=== PATIENT | female | born 1965 | race Caucasian/White ===

== ENCOUNTER 2016-12-03 17:49 | Emergency (ER) | payer BC ==
[2016-12-03] MEDS ORDERED: 0.9 % SODIUM CHLORIDE 1,000 ML BAG IV ONE (18:44)
[2016-12-03] MEDS ORDERED: PANTOPRAZOLE SODIUM IV 40 MG VIAL IVP ONE (18:45)
--- NOTE | 2016-12-03 18:45 | Emergency Department Record ---
History of Present Illness - General Chief complaint: Vomiting blood Stated complaint: VOMITING BLOOD Time Seen by Provider: 12/03/16 18:42 Source: Patient Mode of Arrival: Ambulatory Limitations: No limitations - History of Present Illness Initial comments: 51 yo presents after starting with nausea and vomiting last evening. Her first episode last night and first episode this morning were clear. As the day progressed she had some streaks of blood in the clear mucous like vomit. No blood in the stools. This has occurred on about 3-4 times today. Her nausea started after eating a greasy sausage last night. She did not have any blood the first time she vomited last night or the first time this morning. Nausea and upset stomach are common for her after greasy food. This morning when she tried to eat the symptoms persisted with nausea then vomited. No changes in her stool color. 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 Onset/Timin -: Days(s) Radiation: None Quality: Painless Consistency: Intermittent Improves with: None Worsens with: None Associated Symptoms: Headaches, Nausea, Vomiting Treatments Prior to Arrival: None - Related Data Home Medications Medication Instructions Recorded Confirmed Last Taken Naproxen [Naprosyn] 500 mg PO Q12H 07/29/15 12/03/16 Unknown Previous Rx's Medication Instructions Recorded Ondansetron [Zofran Odt] 4 mg PO Q8H #20 tab.rapdis 12/03/16 Pantoprazole Sodium [Protonix] 20 mg PO DAILY #30 tablet. 12/03/16 Allergies Allergy/AdvReac Type Severity Reaction Status Date / Time hydroxychloroquine sulfate Allergy seeping Verified 12/03/16 18:32 [From Plaquenil] rash Travel Screening - Travel/Exposure Within Last 30 Days Have you traveled within the last 30 days?: No Review of Systems Constitutional: Denies: Chills, Fever, Malaise, Night sweats, Weakness Eyes: Denies: Eye discharge, Eye pain, Photophobia ENT: Denies: Congestion Respiratory: Denies: Cough, Dyspnea, Hemoptysis, Stridor, Wheezes Cardiovascular: Denies: Chest pain, Palpitations Endocrine: Denies: Fatigue Gastrointestinal: Reports: Abdominal pain (mild knot like feeling in the upper stomach), Hematemesis, Nausea, Vomiting. Denies: Constipation, Diarrhea, Hematochezia, Melena Genitourinary: Denies: Dysuria, Hematuria, Urgency Musculoskeletal: Denies: Arthralgia, Back pain, Myalgia, Neck pain Skin: Denies: Change in color, Change in hair/nails, Lesions Neurological: Denies: Confusion, Headache Psychiatric: Denies: Anxiety Hematological/Lymphatic: Denies: Blood Clots, Easy bleeding, Easy bruising, Swollen glands Past Medical History - SOCIAL HISTORY Smoking Status: Never smoker Alcohol Use: None Drug Use: None - RESPIRATORY Hx Respiratory Disorders: No - CARDIOVASCULAR Hx Cardio Disorders: No - NEURO Hx Neuro Disorders: Yes Hx Headaches: Yes - GI Hx GI Disorders: Yes Hx Abdominal Pain: Yes - Hx Genitourinary Disorders: No - ENDOCRINE Hx Endocrine Disorders: No - MUSCULOSKELETAL Hx Musculoskeletal Disorders: No - PSYCH Hx Psych Problems: No - HEMATOLOGY/ONCOLOGY Hx Hematology/Oncology Disorders: No Family Medical History Any Significant Family History?: Yes Hx Cancer: Mother *Cancer Comment: Aunt Hx Diabetes: Mother *Diabetes Comment: Aunt, Uncle Hx Heart Disease: Grandparents Hx HTN: Grandparents Physical Exam - General General Appearance: Alert, Oriented x3, Cooperative, No acute distress Limitations: No limitations - Head Head exam: Atraumatic, Normal inspection - Eye Eye exam: Normal appearance, PERRL. negative: Conjunctival injection - ENT ENT exam: Normal exam, Mucous membranes moist Ear exam: Normal external inspection Nasal Exam: Normal inspection Mouth exam: Normal external inspection Teeth exam: Normal inspection Throat exam: Normal inspection - Neck Neck exam: Normal inspection, Full ROM. negative: Tenderness - Respiratory Respiratory exam: Normal lung sounds bilaterally. negative: Respiratory distress - Cardiovascular Cardiovascular Exam: Regular rate, Normal rhythm, Normal heart sounds - GI/Abdominal GI/Abdominal exam: Soft, Normal bowel sounds. negative: Distended, Tenderness - exam: Deferred - Extremities Extremities exam: Normal inspection, Full ROM, Normal capillary refill. negative: Tenderness - Back Back exam: Reports: Normal inspection, Full ROM. Denies: Muscle spasm, Rash noted, Tenderness - Neurological Neurological exam: Alert, Normal gait, Oriented X3 - Psychiatric Psychiatric exam: Normal affect, Normal mood - Skin Skin exam: Dry, Intact, Normal color, Warm Course Vital Signs 12/03/16 18:19 Temperature 98.0 F Pulse Rate 81 Respiratory 18 Rate Blood Pressure 147/100 Pulse Ox 98 - Reevaluation(s) Reevaluation #1: The labs were reviewed No acute changes Hgb is 12.8 which is much improved from prior Hgb where she had low MCV 12/03/16 19:45 Reevaluation #2: The patient was informed regarding her labs She is doing well. No recurrence of vomiting and her nausea is well controlled. Damon observe and trial PO fluids. 12/03/16 19:52 Reevaluation #3: The patient continues to do well She has no pain or nausea We discussed DC home and reasons to return No sign of significant GI bleed She will be sent of Zofran and Protonix with GI referral She will return immediately to the ER if she has any concerns. 12/03/16 21:16 Medical Decision Making - Lab Data Result diagrams: 12/03/16 18:40 12/03/16 18:40 Disposition Disposition: Discharge Clinical Impression: Gastritis Qualifiers: Gastritis type: unspecified gastritis Chronicity: acute Gastritis bleeding: with bleeding Qualified Code(s): K29.01 - Acute gastritis with bleeding Disposition: Home, Self-Care Condition: (1) Good Instructions: Gastrointestinal Bleeding (ED) Additional Instructions: Immediately return if you have vomiting, pain, or any blood in your vomit or stools Zofran can be taken every 4 hours for nausea Start Protonic daily You are being referred to the GI specialty clinic at [facility] Prescriptions: Pantoprazole Sodium [Protonix] 20 mg PO DAILY #30 tablet. Ondansetron [Zofran Odt] 4 mg PO Q8H #20 tab.rapdis Referrals: [facility] Specialty Clinics [Provider Group] LENARD BECK [DOCTOR OF OSTEOPATH] - Forms: Patient Portal Access Time of Disposition: 21:21
[2016-12-03] MEDS ORDERED: ONDANSETRON HCL IV 4 MG/2 ML VIAL IVP ONE (18:51)
[2016-12-03 18:57] LABS: HEMATOCRIT 39.1 % (35.0-47.0); HEMOGLOBIN 12.8 gm/dl (11.6-16.0); MEAN CELL VOLUME 80.6 fl (81-97); MEAN CORPUSCULAR HEMOGLOBIN 26.4 pg (27-33); MEAN CORPUSCULAR HGB CONC 32.7 g/dl (32-36); MEAN PLATELET VOLUME 11.4 fl (7.4-10.4); PLATELET COUNT 175 K/uL (130-400); RED BLOOD COUNT 4.85 M/uL (3.80-5.40); RED CELL DISTRIBUTION WIDTH 15.4 % (11.5-14.5); WHITE BLOOD COUNT W/O DIFF 6.9 K/uL (4.2-12.2)
[2016-12-03 19:08] LABS: ALB/GLOB RATIO 1.4 (1.1-1.8); ALBUMIN 4.3 gm/dL (3.5-5.0); ALKALINE PHOSPHATASE 82 U/L (38-126); ALT/SGPT 35 U/L (9-52); ANION GAP 12.1 (7-16); AST/SGOT 24 U/L (14-36); BILIRUBIN,TOTAL 0.82 mg/dL (0.2-1.3); BLOOD UREA NITROGEN 23 mg/dL (7-17); CARBON DIOXIDE 22.9 mmol/L (22-30); CREATININE 0.7 mg/dL (0.52-1.04); EST GLOMERULAR FILTRATION RATE > 60 ml/min; GLUCOSE,RANDOM 100 mg/dL (70-110); LIPASE 58 U/L (23-300); TOTAL PROTEIN 7.3 gm/dL (6.3-8.2)
[2016-12-03 19:09] LABS: INR 0.98; PROTHROMBIN TIME (PATIENT) 11.1 SECONDS (9.5-12.1)
[2016-12-03 19:14] LABS: PLATELET ESTIMATE NORMAL (NORMAL)
[2016-12-03 19:48] LABS: ABO GROUP AB; ANTIBODY SCREEN NEGATIVE (NEGATIVE); RH TYPE POSITIVE
[2016-12-03] MEDS ORDERED: ACETAMINOPHEN 500 MG TABLET PO ONE (19:52)
[2016-12-03] MEDS ORDERED: ONDANSETRON 4 MG ODT TABLET SL ONE (21:26)
== END 2016-12-03 21:35 | disposition home or self-care (01) ==
LOC: ER 17:49
DX: K29.01 Acute gastritis with bleeding (principal); R51 Headache
CPT/HCPCS: 99284 ×2; 96374; 96375; 96361; 83690; 85730; 85610; 80053; 85027; 86900; 86901; 86850; J2405; C9113; J7030

== ENCOUNTER 2017-01-14 09:17 | Day surgery (SDC) | payer BC ==
[2017-01-14] MEDS ORDERED: MIDAZOLAM HCL 2MG/2ML VIAL IV ONE (14:00)
[2017-01-14] MEDS ORDERED: PROPOFOL 10 MG/ML VIAL IV ONE (14:00)
[2017-01-14] MEDS ORDERED: FENTANYL PF 100MCG/2ML VIAL IV ONE (14:00)
[2017-01-14] MEDS ORDERED: LIDOCAINE 2% MDV (20MG/ML) 20ML VIAL IV ONE (14:00)
--- NOTE | 2017-01-18 15:00 | Operative Note ---
DATE OF SURGERY: 01/14/2017 SURGEON: Chantal Tee MD OPERATION: 1. ESOPHAGOGASTRODUODENOSCOPY. 2. COLONOSCOPY. INDICATIONS: This is a 51-year-old female with history of hematemesis and blood in his stool who presented today for both esophagogastroduodenoscopy and colonoscopy. POSTOPERATIVE DIAGNOSES: 1. Normal esophagus. 2. Diffuse erosive gastritis. 3. Normal duodenum. 4. Normal colonic and terminal ileum mucosa with no neoplasm or ulcerative lesions. ANESTHESIA: Sedation is per Anesthesia. Pulse oximetry was monitored throughout the procedure to maintain O2 saturation of 90% or greater. Supplemental oxygen was administered via nasal cannula. Cardiac and vital signs were monitored throughout the duration of the procedure, and they were stable. The procedures of esophagogastroduodenoscopy and colonoscopy and risks and benefits of the procedures, including the risk of bleeding and perforation, among others, were explained to the patient who voiced understanding and desired to have the procedures done. Physical examination was performed, and the patient was found stable for sedation. PROCEDURE: The patient was placed in the left lateral position. Sedation was initiated. A plastic bite block was inserted into the oral cavity. The Olympus VXF450 gastroscope was introduced into the oral cavity and advanced to the proximal esophagus without difficulty. The esophageal mucosa was carefully examined upon introduction of the gastroscope. The proximal, mid, and distal esophageal mucosa appeared normal. The gastroscope was then advanced into the stomach, and surveillance of the stomach revealed diffuse erosions involving the gastric body and antrum but no ulcers were noted. The gastroscope was then advanced to the descending duodenum without difficulty. The duodenal bulb and descending duodenum appeared normal. The gastroscope was then withdrawn into the stomach and retroflexion was performed. No other lesions were noted. Multiple gastric and distal esophageal biopsies were obtained. The gastroscope was then withdrawn while carefully examining the esophageal mucosal surface. No other lesions were noted. She tolerated the procedure well without any immediate complications. She remained with stable vital signs and was repositioned for colonoscopy. A digital rectal exam was performed and showed some mild external hemorrhoids with no palpable rectal masses. An Olympus [id number]-180AL colonoscope was then inserted into the rectum under direct visualization. It was advanced to the cecum without difficulty. The ileocecal valve and appendiceal orifice were identified and photographed. The colonic mucosa was carefully examined upon introduction of the colonoscope. There were no lesions noted. The was intubated and terminal ileum mucosa was inspected for about 10 cm and it appeared normal. The colonoscope was then withdrawn while carefully examining the colonic mucosal surfaces. No other lesions were noted. In the rectum, upon retroflexion, grade 1 internal hemorrhoids were noted. There were no other lesions noted. The colonoscope was then withdrawn and the procedure was terminated. The patient tolerated the procedure well without any immediate complications. She remained with stable vital signs and was transferred to the recovery room. RECOMMENDATIONS: 1. She should continue on proton pump inhibitors. 2. She is to have a repeat colonoscopy for screening in 10 years. Thank you for allowing me to participate in the care of your patient. Chantal Tee MD CC: Madan HAM
== END 2017-01-14 12:05 | disposition home or self-care (01) ==
LOC: HOP 09:17
PROVIDERS: ATTEND Internal Medicine Gastroenterology
DX: K29.80 Duodenitis without bleeding (principal); K29.50 Unspecified chronic gastritis without bleeding; K64.8 Other hemorrhoids
CPT/HCPCS: 43239; 45380; 00740; J3010

== ENCOUNTER 2017-02-04 15:00 | Emergency (ER) | payer BC ==
[2017-02-04] MEDS ORDERED: ONDANSETRON HCL IV 4 MG/2 ML VIAL IV ONE (15:33)
--- NOTE | 2017-02-04 15:33 | Emergency Department Record ---
History of Present Illness - General Chief complaint: Nausea, Vomiting, Diarrhea Stated complaint: VOMITING/ABD PROBLEMS Time Seen by Provider: 02/04/17 15:26 Source: Patient Mode of Arrival: Ambulatory Limitations: No limitations - History of Present Illness Initial comments: 51 yo female presents with nausea, vomiting after a change in her medications. She has a form of arthritis. She had been on NSAIDS for many years. She developed abdominal pain. She had an upper scope on 01/14 that demonstrated erosive gastritis. She was taken off her NSAIDS and started NORCO. After starting the [place] she began vomiting and has not been able to over come it. PCP is the [facility]. MD complaint: Nausea, Vomiting Onset/Timin -: Days(s) Description of Vomiting: Watery Severity scale (1-10): 9 Quality: Aching Consistency: Constant - Related Data Previous Rx's Medication Instructions Recorded Ondansetron [Zofran Odt] 4 mg PO Q8H #25 tab.rapdis 02/04/17 Sucralfate [Carafate] 1 g PO BID #200 udc 02/04/17 Allergies Allergy/AdvReac Type Severity Reaction Status Date / Time hydroxychloroquine sulfate Allergy seeping Verified 02/04/17 15:16 [From Plaquenil] rash Travel Screening - Travel/Exposure Within Last 30 Days Have you traveled within the last 30 days?: No - Travel/Exposure Within Last Year Have you traveled outside the [place] in the last year?: No - Travel Symptoms Symptom Screening: None Review of Systems Constitutional: Denies: Chills, Fever, Malaise, Weakness Eyes: Denies: Eye discharge ENT: Denies: Congestion, Throat pain Respiratory: Denies: Cough Cardiovascular: Denies: Chest pain, Palpitations, Syncope Endocrine: Denies: Fatigue Gastrointestinal: Reports: As per HPI, Abdominal pain, Nausea, Vomiting. Denies : Diarrhea Genitourinary: Denies: Dysuria, Urgency Musculoskeletal: Reports: As per HPI, Arthralgia. Denies: Myalgia Skin: Denies: Bruising, Change in color, Rash Neurological: Reports: Headache (Migraines) Psychiatric: Denies: Anxiety Hematological/Lymphatic: Denies: Blood Clots, Easy bleeding, Easy bruising, Swollen glands Past Medical History - SOCIAL HISTORY Smoking Status: Never smoker Alcohol Use: Rare Drug Use: None - RESPIRATORY Hx Respiratory Disorders: No - CARDIOVASCULAR Hx Cardio Disorders: No - NEURO Hx Neuro Disorders: Yes Hx of Migraines: Yes - GI Hx GI Disorders: Yes Hx Abdominal Pain: Yes - Hx Genitourinary Disorders: No - ENDOCRINE Hx Endocrine Disorders: No - MUSCULOSKELETAL Hx Musculoskeletal Disorders: No - PSYCH Hx Psych Problems: No - HEMATOLOGY/ONCOLOGY Hx Hematology/Oncology Disorders: No Hx Cancer: Yes (UTERINE) Family Medical History Any Significant Family History?: Yes Hx Cancer: Mother *Cancer Comment: Aunt Hx Diabetes: Mother *Diabetes Comment: Aunt, Uncle Hx Heart Disease: Grandparents Hx HTN: Grandparents Physical Exam - General General Appearance: Alert, Oriented x3, Cooperative, No acute distress Limitations: No limitations - Head Head exam: Atraumatic, Normal inspection - Eye Eye exam: Normal appearance, PERRL. negative: Conjunctival injection - ENT ENT exam: Normal exam Ear exam: Normal external inspection Nasal Exam: Normal inspection Mouth exam: Normal external inspection Teeth exam: Normal inspection Throat exam: Normal inspection - Neck Neck exam: Normal inspection, Full ROM. negative: Lymphadenopathy, Tenderness - Respiratory Respiratory exam: Normal lung sounds bilaterally. negative: Respiratory distress - Cardiovascular Cardiovascular Exam: Regular rate, Normal rhythm, Normal heart sounds - GI/Abdominal GI/Abdominal exam: Soft. negative: Diminished bowel sounds, Distended, Tenderness - Rectal Rectal exam: Deferred - exam: Deferred - Extremities Extremities exam: Full ROM, Normal capillary refill. negative: Normal inspection (midl hand swelling bilateral), Tenderness - Back Back exam: Reports: Normal inspection, Full ROM. Denies: CVA tenderness (R), CVA tenderness (L), Muscle spasm, Rash noted, Tenderness - Neurological Neurological exam: Alert, Normal gait, Oriented X3, Reflexes normal - Psychiatric Psychiatric exam: Normal affect, Normal mood. negative: Agitated, Anxious - Skin Skin exam: Dry, Intact, Normal color, Warm Course Vital Signs 02/04/17 15:05 Temperature 97.9 F Pulse Rate 89 Respiratory 22 Rate Blood Pressure 131/94 Pulse Ox 99 - Reevaluation(s) Reevaluation #1: The labs were reviewed The Hgb is 14.2 which is improved from prior No other acute changes The scope from 01/14 was reviewed We discussed the difficulties in treating her pain given the erosive gastritis [facility] NSAIDS with be problematic She has not tolerated the oral [place] well to this point. She is doing better with the IVF and Zofran. 02/04/17 16:21 Reevaluation #2: The IVF have completed She is doing much better DC on Zofran and Carafate 02/04/17 17:42 Medical Decision Making - Lab Data Result diagrams: 02/04/17 15:38 02/04/17 15:38 Disposition Disposition: Discharge Clinical Impression: Nausea and vomiting Qualifiers: Vomiting type: unspecified Vomiting Intractability: non-intractable Qualified Code(s): R11.2 - Nausea with vomiting, unspecified Disposition: Home, Self-Care Condition: (1) Good Instructions: Acute Nausea and Vomiting (ED) Additional Instructions: Return if you have pain, fever, uncontrolled nausea or vomiting Zofran as directed for nausea Follow up as scheduled with your doctors Prescriptions: Sucralfate [Carafate] 1 g PO BID #200 udc Ondansetron [Zofran Odt] 4 mg PO Q8H #25 tab.rapdis Forms: Patient Portal Access Time of Disposition: 17:41
[2017-02-04] MEDS ORDERED: PANTOPRAZOLE SODIUM IV 40 MG VIAL IVP ONE (15:34)
[2017-02-04 15:43] LABS: BASO % 0.3 % (0-6); EOS % 1.2 % (0-6); HEMOGLOBIN 14.2 gm/dl (11.6-16.0); LYMPH % 17.9 % (16-45); MEAN CELL VOLUME 81.7 fl (81-97); MONO % 6.6 % (0-9); PLATELET COUNT 296 K/uL (130-400); RED BLOOD COUNT 5.26 M/uL (3.80-5.40); WHITE BLOOD COUNT W/O DIFF 7.5 K/uL (4.2-12.2)
[2017-02-04 15:44] LABS: URINE APPEARANCE CLEAR; URINE BILIRUBIN NEGATIVE (NEGATIVE); URINE BLOOD TRACE-I (NEGATIVE); URINE COLOR YELLOW; URINE GLUCOSE (UA) NEGATIVE (NEGATIVE); URINE KETONE NEGATIVE (NEGATIVE); URINE LEUKOCYTE ESTERASE NEGATIVE (NEGATIVE); URINE NITRITE NEGATIVE (NEGATIVE); URINE PROTEIN NEGATIVE (NEGATIVE); URINE UROBILINOGEN 0.2 E.U./dL (0.20 - 1.00)
[2017-02-04] MEDS ORDERED: 0.9 % SODIUM CHLORIDE 1,000 ML BAG IV ONE (15:47)
[2017-02-04 15:53] LABS: HCG,QUALITATIVE URINE NEGATIVE (NEGATIVE); URINE BACTERIA NONE SEEN; URINE RBC 0 - 2 (NONE SEEN)
[2017-02-04 15:57] LABS: ALB/GLOB RATIO 1.3 (1.1-1.8); ALBUMIN 4.4 gm/dL (3.5-5.0); ALKALINE PHOSPHATASE 99 U/L (38-126); ALT/SGPT 31 U/L (9-52); ANION GAP 9.8 (7-16); AST/SGOT 25 U/L (14-36); BILIRUBIN,TOTAL 0.43 mg/dL (0.2-1.3); BLOOD UREA NITROGEN 21 mg/dL (7-17); CARBON DIOXIDE 26.2 mmol/L (22-30); CREATININE 0.9 mg/dL (0.52-1.04); EST GLOMERULAR FILTRATION RATE > 60 ml/min; GLUCOSE,RANDOM 103 mg/dL (70-110); LIPASE 67 U/L (23-300); TOTAL PROTEIN 7.8 gm/dL (6.3-8.2)
[2017-02-04] MEDS ORDERED: ACETAMINOPHEN 500 MG TABLET PO ONE (17:41)
== END 2017-02-04 17:55 | disposition home or self-care (01) ==
LOC: ER 15:00
DX: R11.2 Nausea with vomiting, unspecified (principal); R19.7 Diarrhea, unspecified; K29.60 Other gastritis without bleeding
CPT/HCPCS: 99284 ×2; 96374; 96375; 96361; 83690; 85025; 80053; 81001; 81025; J2405; C9113; J7030

== ENCOUNTER 2018-01-15 08:00 | Emergency (ER) | payer BC ==
[2018-01-15] MEDS ORDERED: PREDNISONE 20 MG TAB PO ONE (08:22)
--- NOTE | 2018-01-15 08:25 | Emergency Department Record ---
History of Present Illness - General Chief Complaint: Cough Stated Complaint: COUGH,TAYLOR Time Seen by Provider: 01/15/18 08:15 Source: Patient Mode of Arrival: Ambulatory Limitations: No limitations - History of Present Illness Initial Comments: The patient is here due to a cough and congestion and hoarseness for 2-3 days. She may have had a low grade fever yesterday and has had mild sinus congestion. The has mild CP ONLY with coughing. MD Complaint: Cough, Nasal congestion Onset/Timin -: Days(s) - Related Data Previous Rx's Medication Instructions Recorded Albuterol Sulfate [Proair Hfa] 2 puff IH QID PRN #1 inhaler 01/15/18 Benzonatate [Tessalon Perle] 100 mg PO TID #20 capsule 01/15/18 Prednisone [Prednisone 20Mg] 40 mg PO DAILY #8 tab 01/15/18 Allergies Allergy/AdvReac Type Severity Reaction Status Date / Time hydroxychloroquine sulfate Allergy seeping Verified 01/15/18 08:05 [From Plaquenil] rash Travel Screening - Travel/Exposure Within Last 30 Days Have you traveled within the last 30 days?: No - Travel/Exposure Within Last Year Have you traveled outside the [place] in the last year?: No - Additonal Travel Details Have you been exposed to anyone with a communicable illness?: No - Travel Symptoms Symptom Screening: None Review of Systems Constitutional: Reports: Malaise. Denies: Chills, Fever Eyes: Denies: Eye discharge ENT: Reports: Congestion Respiratory: Reports: Cough. Denies: Dyspnea Past Medical History - SOCIAL HISTORY Smoking Status: Never smoker Alcohol Use: Rare Drug Use: None - RESPIRATORY Hx Respiratory Disorders: No - CARDIOVASCULAR Hx Cardio Disorders: No - NEURO Hx Neuro Disorders: Yes Hx of Migraines: Yes - GI Hx GI Disorders: Yes Hx Abdominal Pain: Yes - Hx Genitourinary Disorders: No - ENDOCRINE Hx Endocrine Disorders: No - MUSCULOSKELETAL Hx Musculoskeletal Disorders: No - PSYCH Hx Psych Problems: No - HEMATOLOGY/ONCOLOGY Hx Hematology/Oncology Disorders: Yes Hx Cancer: Yes (UTERINE) Family Medical History Any Significant Family History?: Yes Hx Cancer: Mother *Cancer Comment: Aunt Hx Diabetes: Mother *Diabetes Comment: Aunt, Uncle Hx Heart Disease: Grandparents Hx HTN: Grandparents Physical Exam - General General Appearance: Alert, Oriented x3, Cooperative, No acute distress - Head Head exam: Atraumatic, Normocephalic, Normal inspection - Eye Eye exam: Normal appearance, PERRL - ENT Throat exam: Tonsillar erythema (mild.). negative: Normal inspection, Tonsillomegaly, Tonsillar exudate - Neck Neck exam: Normal inspection, Full ROM. negative: Tenderness - Respiratory Respiratory exam: Normal lung sounds bilaterally. negative: Accessory muscle use, Decreased breath sounds, Rales, Respiratory distress, Rhonchi, Stridor, Wheezes - Cardiovascular Cardiovascular Exam: Regular rate, Normal rhythm, Normal heart sounds - GI/Abdominal GI/Abdominal exam: Soft, Normal bowel sounds. negative: Tenderness Course Vital Signs 01/15/18 08:08 Temperature 97.8 F Pulse Rate 81 Respiratory 24 Rate Blood Pressure 148/94 Pulse Ox 97 - Reevaluation(s) Reevaluation #1: I did explain to the patient that it clearly appears she has a viral URI. We will discharge her with medicines for cough and a short course of oral steroids. 01/15/18 09:07 Medical Decision Making - Data Complexity MDM Data: X-Ray Ordered and/or Reviewed (CXR: Neg) Disposition Disposition: Discharge Clinical Impression: Viral URI with cough Disposition: Home, Self-Care Condition: (2) Stable Instructions: Cold Symptoms (ED) Additional Instructions: Please take the Albuterol with the Tessalon and Prednisone. Please see your PCP if not better in 3 days. Return to the ER for any worsening symptoms. Prescriptions: Albuterol Sulfate [Proair Hfa] 2 puff IH QID PRN #1 inhaler PRN Reason: Cough And Difficulty Breathing Benzonatate [Tessalon Perle] 100 mg PO TID #20 capsule Prednisone [Prednisone 20Mg] 40 mg PO DAILY #8 tab Forms: Patient Portal Access Time of Disposition: 09:10 Quality - Quality Measures Quality Measures: Upper Respiratory Infection - Blood Pressure Screening View Details: Yes Does Patient Have Any of the Following: No Blood Pressure Classification: Pre-Hypertensive BP Reading Systolic Measurement: 139 Diastolic Measurement: 78 Screening for High Blood Pressure: < Pre-Hypertensive BP, F/U Documented > [ [id number]] Pre-Hypertensive Follow-up Interventions: Referral to alternative/primary care provider.
--- NOTE | 2018-01-16 20:06 | RADIOLOGY REPORT ---
EXAM: CHEST 2 VIEWS HISTORY: DIFFICULTY IN BREATHING. TECHNIQUE: Frontal and lateral views of the chest were performed. FINDINGS: Heart size is normal. Lung mohr are clear. Osseous structures are normal. IMPRESSION: NEGATIVE CHEST EXAMINATION. JOB NUMBER: [id number] [facility]
== END 2018-01-15 09:50 | disposition home or self-care (01) ==
LOC: ER 08:00
DX: J06.9 Acute upper respiratory infection, unspecified (principal); R05 Cough; R06.00 Dyspnea, unspecified
CPT/HCPCS: 99283 ×2; 71046; 94664; J7512

== ENCOUNTER 2018-03-20 22:19 | Emergency (ER) | payer BC ==
--- NOTE | 2018-03-20 22:28 | Emergency Department Record ---
History of Present Illness - General Chief complaint: Bite Insect/other Stated complaint: TICK ON BACK Source: Patient Mode of Arrival: Ambulatory Limitations: No limitations - History of Present Illness Initial comments: The patient is here due to finding a tick on her back this evening. Since she has been unable to have it removed she presented here. She denies any problems. complaint: Insect bite/sting Hx Tetanus Toxoid Vaccination: Yes - Related Data Previous Rx's Medication Instructions Recorded Doxycycline Monohydrate 200 mg PO ONCE #2 capsule 03/20/18 Allergies Allergy/AdvReac Type Severity Reaction Status Date / Time hydroxychloroquine sulfate Allergy seeping Verified 01/15/18 08:05 [From Plaquenil] rash Review of Systems Constitutional: Denies: Chills, Fever Past Medical History - SOCIAL HISTORY Smoking Status: Never smoker Drug Use: None - RESPIRATORY Hx Respiratory Disorders: No - CARDIOVASCULAR Hx Cardio Disorders: No - NEURO Hx Neuro Disorders: Yes Hx of Migraines: Yes - GI Hx GI Disorders: Yes Hx Abdominal Pain: Yes - Hx Genitourinary Disorders: No - ENDOCRINE Hx Endocrine Disorders: No - MUSCULOSKELETAL Hx Musculoskeletal Disorders: No - PSYCH Hx Psych Problems: No - HEMATOLOGY/ONCOLOGY Hx Hematology/Oncology Disorders: Yes Hx Cancer: Yes (UTERINE) Family Medical History Hx Cancer: Mother *Cancer Comment: Aunt Hx Diabetes: Mother *Diabetes Comment: Aunt, Uncle Hx Heart Disease: Grandparents Hx HTN: Grandparents Physical Exam - General General Appearance: Alert, Oriented x3, Cooperative, No acute distress - Head Head exam: Atraumatic, Normocephalic, Normal inspection - Eye Eye exam: Normal appearance, PERRL - Back Back exam: Denies: Normal inspection (There is a tick over the L scapula. The tick was removed with forceps without difficulty. ) Course - Reevaluation(s) Reevaluation #1: I did discuss the need for prophylaxis for Lyme dz since the patient is not sure how long the tick was in place. She also is to see her PCP to have her BP rechecked. 03/20/18 22:32 Disposition Disposition: Discharge Clinical Impression: Tick bite Qualifiers: Encounter type: initial encounter Qualified Code(s): W57.XXXA - Bitten or stung by nonvenomous insect and other nonvenomous arthropods, initial encounter Disposition: Home, Self-Care Condition: (2) Stable Instructions: Insect Bite or Sting (ED) Additional Instructions: Please take the Doxycycline as directed. Please watch for signs of lyme dz and return to the ER for any problems. Please see your family doctor next week to have your blood pressure rechecked. Prescriptions: Doxycycline Monohydrate 200 mg PO ONCE #2 capsule Forms: Patient Portal Access Time of Disposition: 22:28 Quality - Quality Measures Quality Measures: N/A - Blood Pressure Screening View Details: Yes Does Patient Have Any of the Following: No Blood Pressure Classification: Hypertensive Reading Systolic Measurement: 180 Diastolic Measurement: 110 Screening for High Blood Pressure: < First Hypertensive BP, F/U Documented > [ G8950] First Hypertensive Follow-up Interventions: Referral to alternative/primary care provider.
== END 2018-03-20 22:46 | disposition home or self-care (01) ==
LOC: ER 22:19
DX: S20.462A Insect bite (nonvenomous) of left back wall of thorax, initial encounter (principal); W57.XXXA Bitten or stung by nonvenomous insect and other nonvenomous arthropods, initial encounter
CPT/HCPCS: 99282